=== PATIENT | female | born 1950 | race African-American/Black ===

== ENCOUNTER 2016-10-10 14:25 | Outpatient (CLI) | payer MEDICARE ==
--- NOTE | 2016-10-10 16:02 | Mammography Report ---
BONE DENSITY STUDY: DEFINITIONS: BMD = Bone Mineral Density T-score = BMD related to mean peak bone mass of young adult (mean expressed in Standard Deviation) Z-score = Age matched BMD expressed in SD World Health Organization (WHO) Diagnostic Criteria Normal T-score > -1 SD Osteopenia T-score between -1 and -2.4 SD Osteoporosis T-score -2.5 SD or below FINDINGS: The weighted average BMD of lumbar spine L1-L4 is 0.717 with a T-score of -3.0. The weighted average BMD of hip is 0.577 with a T-score of -3.0. IMPRESSION: The patient's average T-score is diagnostic for osteoporosis and high relative risk for fracture. NOTE: BMD is not the only risk factor for fracture; also consider factors such as the patient's age, risk of falling, previous osteoporotic fracture, family history of osteoporotic fractures, current smoker, and low body weight. Jason's triangle is a region of interest in femur, predominantly of trabecular bone. It is not a true anatomic site, and [facility] does not recommend its use clinically.
== END 2016-10-10 14:26 | disposition home or self-care (01) ==
LOC: MAMMO 14:25
DX: M85.88 Other specified disorders of bone density and structure, other site (principal)
CPT/HCPCS: 77080

== ENCOUNTER 2018-01-05 08:07 | Outpatient (CLI) | payer MEDICARE ==
--- NOTE | 2018-01-05 16:28 | Mammography Report ---
BILATERAL DIGITAL SCREENING MAMMOGRAM with CAD: 01/05/18 08:07:00 CLINICAL: Routine screening. COMPARISON:None available. However, she stated that she had a previous mammogram at [facility] FINDINGS: The breasts are heterogeneously dense, which may obscure small masses. A right outer asymmetry on the CC view with questionable correlation on MLO view requires additional imaging.No architectural distortion or suspicious calcifications.The left breast is negative. IMPRESSION: Right asymmetry requiring further workup. BI-RADS CATEGORY: 0 -- Additional Imaging Evaluation Required RECOMMENDATION: Recall for right mediolateral , spot magnification CC and MLO views and right breast ultrasound if needed. We will also attempt to obtain a comparison mammogram. ACR BI-RADS MAMMOGRAPHIC CODES: 0 = Needs additional imaging evaluation; 1 = Negative; 2 = Benign; 3 = Probably benign; 4 = Suspicious; 5 = Malignant; 6 = Known biopsy-proven malignancy COMMENT: 1. Dense breast tissue, i.e., adenosis, fibrocystic changes, etc., may obscure an underlying neoplasm. 2. Approximately 10% of cancers are not detected with mammography. 3. A negative mammography report should not delay biopsy if a clinically suspicious mass is present. COMMENT: Patient follow-up letters are generated via our [employer] application.
== END 2018-01-05 08:08 | disposition home or self-care (01) ==
LOC: MAMMO 08:07
DX: Z12.31 Encounter for screening mammogram for malignant neoplasm of breast (principal); Z88.0 Allergy status to penicillin
CPT/HCPCS: 77067